=== PATIENT | male | born 2000 | race Caucasian/White ===

== ENCOUNTER 2021-11-11 21:25 | Emergency (ER) | payer BC ==
[2021-11-11] MEDS ORDERED: Sodium Chloride 0.9% 10 ML Syringe FLUSH PRN (21:44)
[2021-11-11] MEDS ORDERED: Sodium Chloride 0.9% 1,000 ML IV ONE (22:00)
[2021-11-11] MEDS ORDERED: Azithromycin 250 MG Tab ONE (23:00)
== END 2021-11-11 23:30 | disposition home or self-care (01) ==
LOC: EDBD 21:25 → LB.ED 21:25
DX: J06.9 Acute upper respiratory infection, unspecified (principal); I10 Essential (primary) hypertension; Z88.0 Allergy status to penicillin; Z79.899 Other long term (current) drug therapy
CPT/HCPCS: 36415; 71045; 80053; 80307; 84484; 85027; 85379; 93005; 96360; 99284-25; A9270-GY; J7030